=== PATIENT | male | born 1985 ===

== ENCOUNTER 2017-04-16 21:20 | Emergency (ER) | payer OTHER ==
[2017-04-16 21:28] VITALS: BP 131/76; PULSE 74; RESP 18; TEMP 97.3; O2SAT 100
--- NOTE | 2017-04-16 21:30 | ED PDOC ---
HPI: Skin/Bite Injury Time Seen by Provider: 04/16/17 21:29 Chief Complaint (Nursing): Abnormal Skin Integrity Chief Complaint (Provider): Abscess History Per: Patient Additional Complaint(s): PT. C/O AN INFECTED PIMPLE TO THE RT. SIDE OF THE FACE X 2 DAYS. Past Medical History Reviewed: Nursing Documentation, Vital Signs Vital Signs: Last Vital Signs Temp 97.3 F L 04/16/17 21:26 Pulse 74 04/16/17 21:26 Resp 18 04/16/17 21:26 BP 131/76 04/16/17 21:26 Pulse Ox 100 04/16/17 21:30 - Medical History PMH: No Chronic Diseases - Surgical History Surgical History: No Surg Hx - Family History Family History: States: No Known Family Hx - Living Arrangements Living Arrangements: With Family - Social History Current smoker - smoking cessation education provided: No Alcohol: Social Drugs: Denies - Home Medications Home Medications: Ambulatory Orders Medication Instructions Recorded Cephalexin [Keflex] 500 mg PO BID #14 capsule 04/16/17 Hydrocortisone 1% Cream [Cortizone 1 dap TOP BID #1 tube 04/16/17 1% Cream] - Allergies Allergies/Adverse Reactions: Allergies Allergy/AdvReac Type Severity Reaction Status Date / Time aspirin Allergy ANAPHYLAXIS Verified 04/16/17 21:25 diclofenac Allergy ANAPHYLAXIS Verified 04/16/17 21:25 Review of Systems ROS Statement: Except As Marked, All Systems Reviewed And Found Negative Skin: Positive for: Other (cyst) Physical Exam - Reviewed Nursing Documentation Reviewed: Yes Vital Signs Reviewed: Yes - Physical Exam Appears: Positive for: Well, Non-toxic, No Acute Distress Head Exam: Positive for: ATRAUMATIC, NORMAL INSPECTION, NORMOCEPHALIC Eye Exam: Positive for: EOMI, Normal appearance, PERRL ENT: Positive for: Normal ENT Inspection Neck: Positive for: Normal, Painless ROM Cardiovascular/Chest: Positive for: Regular Rate, Rhythm Respiratory: Positive for: CNT, Normal Breath Sounds Gastrointestinal/Abdominal: Positive for: Normal Exam, Bowel Sounds, Soft Back: Positive for: Normal Inspection Extremity: Positive for: Normal ROM Neurologic/Psych: Positive for: Alert, Oriented Comments: right nasolabial fold: (+) tender, non fluctuant erythematous mass ~ 1 cm - ECG O2 Sat by Pulse Oximetry: 100 Disposition - Clinical Impression Clinical Impression: Sebaceous cyst - Patient ED Disposition Is Patient to be Admitted: No - Disposition Disposition: Routine/Home Disposition Time: 23:39 Condition: STABLE Prescriptions: Cephalexin [Keflex] 500 mg PO BID #14 capsule Hydrocortisone 1% Cream [Cortizone 1% Cream] 1 dap TOP BID #1 tube Instructions: Epidermal Inclusion Cysts (ED) Forms: [employer] (Serbian), [facility] ED School/Work Excuse
== END 2017-04-16 22:10 | disposition home or self-care (01) ==
LOC: H.ER 21:20
DX: L72.3 Sebaceous cyst (principal)